=== PATIENT | female | born 1990 | race Caucasian/White ===

== ENCOUNTER 2022-10-22 16:04 | Emergency (ER) | payer OTHER, SELFPAY ==
[2022-10-22 16:16] VITALS: BP 116/63; PULSE 81; RESP 18; TEMP 37; O2SAT 99
--- NOTE | 2022-10-22 16:35 | ED.GENADULT ---
HPI - General Adult General Chief complaint: Dental/Oral Stated complaint: Allergic Reaction Time Seen by Provider: 10/22/22 16:35 Source: patient Mode of arrival: ambulatory Limitations: no limitations History of Present Illness HPI narrative: 31-year-old female presents stating that yesterday she took her Prozac and Adderall together and her tongue felt weird and thick all day long. Also she states that she felt that her speech was slurred, speech was faster than her brain was thinking. States she googled her symptoms online and it said her sodium was low so she ate peanut butter and crackers and then felt better. Called her PCP office and was told to go to an urgent care for allergic reaction and to change medications. no longer having any tongue swelling. pt is [employer] and is from [place]. Not able to get an appt at [facility]. Also requesting refill on adderall. Pt alert and talkative. Denies SI/HI. All systems reviewed and negative except as noted above. Related Data Home Medications Medication Instructions Recorded Confirmed dextroamphetamine-amphetamine ER 20 mg PO DAILY 10/22/22 10/22/22 20 mg 24hr capsule,extend release (Adderall XR) Allergies Allergy/AdvReac Type Severity Reaction Status Date / Time No Known Allergies Allergy Verified 10/22/22 16:28 Review of Systems Review of Systems: CONSTITUTIONAL: Denies fever, chills, or sweats. EYES: Denies visual changes, redness, or discharge. ENT: Denies rhinorrhea, congestion, sore throat, or otalgia. CARDIOVASCULAR: Denies chest pain, palpitations, or edema. RESPIRATORY: Denies cough or dyspnea. GASTROINTESTINAL: Denies abdominal pain, nausea, vomiting, or diarrhea. GENITOURINARY: Denies dysuria or hematuria. SKIN: Denies rash or itching. MUSCULOSKELETAL: Denies back pain, joint pain, or myalgia. NEUROLOGIC: Denies headache, numbness, or weakness. PSYCHIATRIC: Denies anxiety or depression. All other systems reviewed are negative, except as documented in HPI. PMFSH Comments At time of signature, agree with nursing past medical, surgical, social and family history. There is no relevant family history pertinent to the presenting complaint. Exam Narrative: GENERAL: This is a well-nourished, well-developed patient, in no apparent distress. HEAD: normocephalic, atraumatic. EYES: PERRL. Sclera clear/white. Vision is grossly intact. EARS: External ears normal NOSE: External nose normal THROAT: Mucous membranes moist, posterior pharynx clear. NECK: Neck supple, non-tender without lymphadenopathy, masses or thyromegaly. CARDIOVASCULAR: Regular rate and rhythm without murmurs, gallops, or rubs. RESPIRATORY: Clear to auscultation. Breath sounds equal bilaterally. No wheezes, rales, or rhonchi. SKIN: warm, Dry, intact with no suspicious lesions or rash, good texture and turgor. NEURO: awake, alert, and oriented to person, place and time. There were no obvious focal neurologic abnormalities. EXTREMITIES: No joint tenderness, effusion, or edema noted. Course Course Level of Care: Express Care Visit Vital Signs Vital signs: Vital Signs Temperature 37.0 C 10/22/22 16:16 Pulse Rate 81 10/22/22 16:16 Respiratory Rate 18 10/22/22 16:16 Blood Pressure 116/63 10/22/22 16:16 Pulse Oximetry 99 10/22/22 16:16 Oxygen Delivery Room Air 10/22/22 16:16 Temperature 37.0 C 10/22/22 16:16 Pulse Rate 81 10/22/22 16:16 Respiratory Rate 18 10/22/22 16:16 Blood Pressure 116/63 10/22/22 16:16 Pulse Oximetry 99 10/22/22 16:16 Oxygen Delivery Room Air 10/22/22 16:16 Reviewed Medical Decision Making MDM Narrative Medical decision making narrative: patient no longer having symptoms allergic reaction. Explained to her that we do not prescribe Adderall at this urgent care. Also recommended that she call her primary care physician and discuss having a telehealth visit to discuss medication change from her pr
== END 2022-10-22 16:48 | disposition home or self-care (01) ==
PROVIDERS: Emergency Provider Nurse Practitioner Family
DX: Z76.0 Encounter for issue of repeat prescription (principal); K21.9 Gastro-esophageal reflux disease without esophagitis; F90.9 Attention-deficit hyperactivity disorder, unspecified type
CPT/HCPCS: 99211; G0463